=== PATIENT | male | born 1950 | race Caucasian/White ===

== ENCOUNTER 2017-12-22 08:01 | Day surgery (SDC) | payer MEDICARE ==
[2014-09-26 09:39] VITALS: BP 147/77
--- NOTE | 2017-12-22 15:53 | GI Report ---
REFERRING PHYSICIAN: Dr. Keaton Wallace [employer] TESTER: Genaro Ch MD PROCEDURE MEDICATION: Propofol as per anesthesia. 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 He is referred for a follow up evaluation. The patient does have heart disease and has a pacemaker. He had atrial fibrillation and V-tach in the past. He denies any recent episodes. He denies any changes in his stools or blood in his stool. He states that he has been trying to cut back on carbohydrates in his diet. He is 5 feet 10 inches and weighs 98 kilograms and carries that centrally. PROCEDURE PERFORMED: Colonoscopy and polypectomy. PROCEDURE: An Olympus video colonoscope was advanced to the rectum and slowly advanced all the way to the cecum. The appendiceal orifice and terminal ileum were normal. At about the mid-ascending colon, patient had a 4 mm flat polyp removed with electrocautery. The transverse colon with some redundancy. No obvious intraluminal lesions noted. The descending colon with some redundancy and a few diverticula. In the sigmoid, patient had 2 polyps removed between 25 cm and around 35 cm. They varied around 3 mm in size. Patient tolerated the procedure well. FINDINGS: Three colon polyps removed, 1 in the ascending colon and 2 in the sigmoid colon. RECOMMENDATIONS: 1. A high-fiber diet. 2. Consider re-looking at his colon within 5 years. cc: Dr. Keaton ENRIQUE
== END 2017-12-22 08:02 ==
LOC: OPSURG 08:01
PROVIDERS: ATTEND Internal Medicine Gastroenterology
DX: Z12.11 Encounter for screening for malignant neoplasm of colon (principal); K63.5 Polyp of colon; D12.2 Benign neoplasm of ascending colon; D12.5 Benign neoplasm of sigmoid colon; I51.9 Heart disease, unspecified; Z95.0 Presence of cardiac pacemaker
CPT/HCPCS: J2001; J2704; J7120; 45385; S1016